=== PATIENT | female | born 1995 | race Caucasian/White ===

== ENCOUNTER → 2018-07-24 | Outpatient (CLI) | payer OTHER ==
[2018-07-24 17:58] LABS: BASO % 0.5 % (0.0-1.0); EOS % 0.6 % (0.0-3.0); HEMATOCRIT 42.6 % (36.0-47.0); HEMOGLOBIN 14.2 g/dl (12.0-15.5); IMMATURE GRANULOCYTE % 0.2 % (0-3.0); LYMPH # 1.4 10^3/uL (1.5-6.5); LYMPH % 21.2 % (24.0-44.0); MEAN CORPUSCULAR HEMOGLOBIN 30.2 pg (27.0-33.0); MEAN CORPUSCULAR HGB CONC 33.3 g/dl (32.0-36.5); MEAN CORPUSCULAR VOLUME 90.6 fl (80.0-96.0); MONO # 0.5 10^3/uL (0.0-0.8); MONO % 7.2 % (0.0-5.0); NEUTROPHILS # 4.6 10^3/uL (1.8-7.7); NEUTROPHILS % 70.3 % (36.0-66.0); PLATELET COUNT, AUTOMATED 224 10^3/uL (150-450); RED CELL DISTRIBUTION WIDTH 11.9 % (11.5-14.5); WHITE BLOOD COUNT 6.6 10^3/uL (4.0-10.0)
[2018-07-24 19:35] LABS: CHLAMYDIA DNA AMPLIFICATION NEGATIVE (NEGATIVE); GC DNA AMPLIFICATION NEGATIVE (NEGATIVE)
[2018-07-25 09:37] LABS: HBsAg Prenatal NEGATIVE (NEGATIVE); HIV 1&2 SCREEN CENTAUR NEGATIVE (NEGATIVE); RUBELLA IgG QUALITATIVE IMMUNE (IMMUNE)
[2018-07-25 09:37] LABS: HEPATITIS C VIRUS ABY INDEX 0.1 INDEX (<0.8)
== END ==
LOC: M SMT 11:22
DX: Z34.82 Encounter for supervision of other normal pregnancy, second trimester (principal); Z36.89 Encounter for other specified antenatal screening
CPT/HCPCS: 86762

== ENCOUNTER → 2018-09-03 | Outpatient (CLI) | payer OTHER ==
--- NOTE | 2018-09-03 19:57 | REP ---
Clinical: Anatomical evaluation. Comparison: 90th . Findings: Examination demonstrates a single live intrauterine in footling breech presentation. motion is identified by technologist. Placenta is noted posterior and grade the grade one without evidence for placenta previa or abruption. Amniotic fluid volume is normal. Cervix measures 4.1 cm in length and appears closed. No evidence for nuchal cord. Gestational age by current measurements 18 weeks 4-day with NAMAN 01/31/2019 . FHR equals 150 beats per minute. BPD 4.2 cm 18 weeks 4 days HC 15.8 cm 18 weeks 5 days AC 13.5 cm 19 weeks 0 days FL 2.9 cm 18 weeks 5 days HL 2.8 cm 19 weeks 0 days HC/AC ratio 1.17 Estimated weight 260 grams ( 55th percentile). Anatomical assessment demonstrates normal structures including cranium, choroid plexus, cavum, cerebellum/posterior fossa, facial features, lungs, diaphragm, stomach, cord insertion/three-vessel cord, kidneys/bladder, spine, and extremities. Impression: 1. Single live intrauterine in breech presentation demonstrating appropriate estimated weight to age. 2. Limited evaluation of the heart/ventricular outflow tracts noted. Remainder of the anatomical assessment is complete and normal. Electronically Signed by Duke Lara MD 09/03/2018 07:48 P
== END ==
LOC: M SMT 08:45
PROVIDERS: ATTEND Advanced Practice Midwife
DX: Z36.9 Encounter for antenatal screening, unspecified (principal); Z3A.18 18 weeks gestation of pregnancy

== ENCOUNTER → 2018-09-18 | Outpatient (CLI) | payer OTHER | LOC: M SMT 10:19 | PROVIDERS: ATTEND Obstetrics & Gynecology | DX: Z13.79 Encounter for other screening for genetic and chromosomal anomalies (principal) ==

== ENCOUNTER → 2018-09-24 | Outpatient (CLI) | payer OTHER ==
--- NOTE | 2018-09-24 15:13 | REP ---
OB ULTRASOUND: Real-time sonographic evaluation of the gravid uterus is performed. There is a single living intrauterine gestation. The estimated gestational age is 21 weeks 4 days, EDC 01/31/2019. Today's measurements indicate appropriate growth. BPD 52 mm = 21 weeks 5 days, 53rd percentile. HC 195 mm = 21 weeks 5 days, 54th percentile. AC 166 mm = 21 weeks 4 day, at the 51st percentile. Femur length 37 mm = 21 weeks 6 days, 56th percentile. HC/AC ratio 1.18 within normal range. Estimated weight 447 gram, 50th percentile. Cervix is closed measures 4 cm in length. heart rate 150 beats per minute. SEEN/GROSSLY UNREMARKABLE Lateral ventricles Yes Posterior fossa Yes Upper lip Yes Four-chamber heart Yes, echogenic focus in the left ventricle likely related to chordae tendineae. LVOT Yes RVOT Yes Stomach Yes Cord insertion Yes Three vessel cord Yes Kidneys Yes Bladder Yes Spine Yes position: Breech. Placenta: Posterior and grade 1 with no previa or abruption. Amniotic fluid: Within normal limits. Electronically Signed by Andres Thomas MD 09/24/2018 11:49 P
== END ==
LOC: M SMT 10:38
PROVIDERS: ATTEND Advanced Practice Midwife
DX: Z36.89 Encounter for other specified antenatal screening (principal); Z3A.21 21 weeks gestation of pregnancy

== ENCOUNTER → 2018-11-07 | Outpatient (CLI) | payer OTHER ==
[2018-11-07 17:47] LABS: HEMATOCRIT 39.2 % (36.0-47.0); HEMOGLOBIN 12.8 g/dl (12.0-15.5); MEAN CORPUSCULAR HEMOGLOBIN 30.7 pg (27.0-33.0); MEAN CORPUSCULAR HGB CONC 32.7 g/dl (32.0-36.5); PLATELET COUNT, AUTOMATED 211 10^3/uL (150-450); RED BLOOD COUNT 4.17 10^6/uL (4.00-5.40); WHITE BLOOD COUNT 8.3 10^3/uL (4.0-10.0)
== END ==
LOC: M SMT 10:12
PROVIDERS: ATTEND Advanced Practice Midwife
DX: O26.892 Other specified pregnancy related conditions, second trimester (principal)

== ENCOUNTER → 2019-01-14 | Outpatient (REF) | payer OTHER | LOC: M LAB REF 17:03 | PROVIDERS: ATTEND Obstetrics & Gynecology | DX: Z34.03 Encounter for supervision of normal first pregnancy, third trimester (principal) ==

== ENCOUNTER 2019-01-25 09:55 | Inpatient (IN) | payer OTHER ==
[~2019-01-25] VITALS: Ht 172.7 cm; Wt 123.6 kg
[2019-01-25] VITALS (56 sets, daily range): BP systolic 116–191; BP diastolic 59–93
[2019-01-25 10:54] LABS: HEMATOCRIT 40.3 % (36.0-47.0); HEMOGLOBIN 13.5 g/dl (12.0-15.5); MEAN CORPUSCULAR HEMOGLOBIN 30.8 pg (27.0-33.0); MEAN CORPUSCULAR HGB CONC 33.5 g/dl (32.0-36.5); MEAN CORPUSCULAR VOLUME 91.8 fl (80.0-96.0); PLATELET COUNT, AUTOMATED 213 10^3/uL (150-450); RED BLOOD COUNT 4.39 10^6/uL (4.00-5.40)
[2019-01-25] MEDS ORDERED: PRENTAB9 PO (10:54)
[2019-01-25] MEDS ORDERED: TUMS500C PO (10:54)
[2019-01-25 11:06] LABS: ALT/SGPT 16 U/L (12-78); BILIRUBIN,TOTAL 0.4 MG/DL (0.2-1.0); CREATININE FOR GFR 0.58 MG/DL (0.55-1.30); GLOMERULAR FILTRATION RATE > 60.0 (>60); LDH LACTATE DEHYDROGENASE 189 U/L (84-246); URIC ACID 4.1 MG/DL (2.6-6.0)
[2019-01-25] MEDS ORDERED: LACTATED RINGER'S 1000 ML IV STA (11:24)
[2019-01-25] MEDS ORDERED: FENTANYL 2MCG/ML ROPIVACAINE 0.2% IN 0.9% NACL 100ML IVBAG As Ordered ONE (11:24)
--- NOTE | 2019-01-25 11:40 | HPEPDOC ---
Obstetrical History & Physical General Date of Admission Jan 25, 2019 at 09:55 History of Present Illness Chief Complaint: Contractions, term Information Provided By: Patient Age: 23 : 1 Term: 0 Pre-term: 0 Abortions: 0 Livin Care Care: Good Care Dating Final EDC: Feb 02, 2019 Final EDC by: 1st trimester (US) EGA at Admission: 39 (+6) Antepartum Course Height (inches): 68 Pre- weight (lbs.): 218 Admission Weight (lbs.): 275 Past Medical History Past Obstetrical History : Past Obstetrical History: Primgravida [employer]RATOR History: No pertinent history Past Medical History Medical History noncontributory Surgical History: Other (bone spur right heel) Family History Significant Family History: Hypertension, Other (thyroid) Social History Marital Status: Family situation: Spouse/partner deployed (family present for support) Psychosocial History: No pertinent psych hx * Smoker: non-smoker Alcohol: Denies Drugs: denies Abuse Violence Screening Have you been hit/kicked/slapp: No Have you been sexually assault: No Allergies Coded Allergies: latex (Verified Adverse Reaction, Mild, ITCHING IRRITATION, 01/25/19) Medications Scheduled Calcium Carbonate (Tums) 200 Mg Tab.chew, 2 TAB PO QID for cough and congestion No.137/Iron/Folic Acd ( Vitamin Tablet) 1 Each Tablet, 1 TAB PO DAILY Physical Examination Physical Examination GENERAL: Alert and oriented times three. BREAST: . ABDOMEN: Gravid and non-tender to touch. FETUS: Is vertex (VTX) by sterile vaginal examination (SVE), fetus is vertex (VTX) by Kofi. HEART RATE: Regular rate and rhythm. LUNGS: Clear to auscultation (CTA). EXTREMITIES: No edema. No clonus. Deep tendon reflexes (DTRs) + 2. Laboratory Data 24H LABS Laboratory Tests 2 01/25/19 10:08: Serology Scanned Report Hepatitis B Testing 01/25/19 10:35: Nucleated Red Blood Cells % (auto) 0.0, Glomerular Filtration Rate > 60.0, Creatinine 0.58, Aspartate Amino Transf (AST/SGOT) 16, Alanine Aminotransferase (ALT/SGPT) 16, Lactate Dehydrogenase 189, Total Bilirubin 0.4, Uric Acid 4.1 CBC/BMP Laboratory Tests 6/14/19 10:35 Red Blood Count 4.39, Mean Corpuscular Volume 91.8, Mean Corpuscular Hemoglobin 30.8, Mean Corpuscular Hemoglobin Concent 33.5, Red Cell Distribution Width 13.3, Aspartate Amino Transf (AST/SGOT) 16, Alanine Aminotransferase (ALT/SGPT) 16, Lactate Dehydrogenase 189, Total Bilirubin 0.4, Uric Acid 4.1 Pertinent Laboratoy Data Blood Type: O+ RBC Antibody Screen: Negative HIV: Negative Hepatitis B: Negative Hepatitis C: Negative Rapid Plasma Reagin: Nonreactive Rubella: Immune Chlamydia/Gonorrhea: Negative Group B Streptococcus: Negative Quad Screen Test: Negative Glucose Tolerance Test: 99 Anatomy Ultrasound Ultrasound Date: Sep 03, 2018 Placenta Location: Posterior Normal Anatomy: Yes Placenta Previa: No Estimated Weight (grams): 260 (55%) Other Ultrasounds 07/24/18 dating 12w3d NAMAN 02/02/19 09/24/18 f/u anatomy 447gm 50%, normal anatomy Steroid Therapy Steroid Therapy: No Vaginal Examination Dilation: 4 cm (-5) Effacement: 80% Station: -2 Cervical Consistency: Soft Cervical Position: Posterior (very tense with exam) Presentation: Cephalic presentation Assessment Heart Rate (FHR): 145 Variability: Moderate Accelerations: Positive Decelerations: None Tocometer Contractions: Yes Frequency: every 2-5 min. Duration: less than 60 seconds Strength: palpated as moderate Assessment/Plan Assessment Pippa is a 23-year-old (G)1 para (P)0-0-0-0 at 38+6 weeks by 12-week ultrasound. Presents to Labor and Delivery (L&D) with reports of UC all day yesterday, becoming consistent and closer around 0500. Denies LOF or bleeding. Fetus is active. Blood pressure in office today 130/98. Rating her contraction pain at 9.5/10 Plan Admit and orient. Lead C Developer and consent. Diet: clear liquids. Group B Streptococcus (GBS) negative Labs and intravenous (IV) per unit protocol. Counseled on Pitocin and induction of labor (IOL). Lactated Ringers (LR): Bolus 500 mL, then at 125 mL/hr. Plans epidural for labor coping Anticipate normal spontaneous delivery (). C-S as appropriate. Samreen Lundberg CNM Jan 25, 2019 11:40
[2019-01-25] MEDS: LR 1,000 ML IV SCH ×2 (12:44→18:28)
[2019-01-25] MEDS ORDERED: LR 1,000 ML IV SCH (12:48)
--- NOTE | 2019-01-25 12:48 | IPNPDOC ---
Text Note Date of Service The patient was seen on 01/25/19. NOTE Comfortable with epidural Additional elevated BP's 140's-150's/80-90's UC 2-4 minutes x 45-60 seconds, moderate FH 145, Cat I Cervix unchanged, posterior Start pitocin augmentation per consult Dr Craft VS,Yuridia, I+O VS, Yuridia I+O Laboratory Tests 01/25/19 10:35 Red Blood Count 4.39, Mean Corpuscular Volume 91.8, Mean Corpuscular Hemoglobin 30.8, Mean Corpuscular Hemoglobin Concent 33.5, Red Cell Distribution Width 13. 3, Aspartate Amino Transf (AST/SGOT) 16, Alanine Aminotransferase (ALT/SGPT) 16, Lactate Dehydrogenase 189, Total Bilirubin 0.4, Uric Acid 4.1 Samreen Lundberg CNM Jan 25, 2019 12:48
[2019-01-25] MEDS ORDERED: OXYTOCIN DRIP 30 UNITS in APPROPRIATE DILUENT 1 EA IV SCH (13:00)
[2019-01-25] MEDS ORDERED: diphenhydrAMINE INJ 50MG/ML VIAL (J1200) IV PRN (13:15)
[2019-01-25] MEDS ORDERED: EPIDURAL COMMENT XX SCH (13:15)
[2019-01-25] MEDS ORDERED: ePHEDrine SULFATE 25 MG/5 ML(5MG/ML) SYRINGE IV PRN (13:15)
[2019-01-25] MEDS ORDERED: EPIDURAL/PCA KEYS XX PRN (13:15)
[2019-01-25] MEDS ORDERED: NALOXONE INJ 0.4 MG/1 ML VIAL (J2310) IV PRN (13:15)
[2019-01-25] MEDS ORDERED: ONDANSETRON 4MG/2ML VIAL (J2405) IV PRN (13:15)
[2019-01-25] MEDS ORDERED: LACTATED RINGER'S 1000 ML IV PRN (13:15)
[2019-01-25] MEDS: FENTANYL/ROPIVACAINE/NACL BAG 100 ML EPIDURAL SCH ×2 (13:15→19:47)
[2019-01-25] MEDS ORDERED: REFRIGERATOR IV KEYS XX PRN (13:15)
--- NOTE | 2019-01-25 16:40 | IPNPDOC ---
Text Note Date of Service The patient was seen on 01/25/19. NOTE Pitocin @ 6mu UC have been difficult to trace due to habitus and position, UC 3-5 minutes apart. Cat I tracing SVE /-2 AROM clear fluid 1631 IUPC and FSE placed. Will update physician CHERRI,Yuridia, I+O VS, Yuridia, I+O Laboratory Tests 01/25/19 10:35 Red Blood Count 4.39, Mean Corpuscular Volume 91.8, Mean Corpuscular Hemoglobin 30.8, Mean Corpuscular Hemoglobin Concent 33.5, Red Cell Distribution Width 13.3, Aspartate Amino Transf (AST/SGOT) 16, Alanine Aminotransferase (ALT/SGPT) 16, Lactate Dehydrogenase 189, Total Bilirubin 0.4, Uric Acid 4.1 Samreen Lundberg CNM Jan 25, 2019 16:40
--- NOTE | 2019-01-25 20:07 | IPNPDOC ---
Text Note Date of Service The patient was seen on 01/25/19. NOTE UC 2-4 minutes x 60 seconds FH 130, variable decels to 90's with recovery. Baseline variability maintained, Cat II SVE 8/100/-2, large amount of bloody show Pitocin off. Dr Craft updated on pt status. VS,Fishbone, I+O VS, Fishbone, I+O Laboratory Tests 01/25/19 10:35 Red Blood Count 4.39, Mean Corpuscular Volume 91.8, Mean Corpuscular Hemoglobin 30.8, Mean Corpuscular Hemoglobin Concent 33.5, Red Cell Distribution Width 13. 3, Aspartate Amino Transf (AST/SGOT) 16, Alanine Aminotransferase (ALT/SGPT) 16, Lactate Dehydrogenase 189, Total Bilirubin 0.4, Uric Acid 4.1 Vital Signs Date Time Temp Pulse Resp B/P (MAP) Pulse Ox O2 Delivery O2 Flow Rate FiO2 01/25/19 19:23 86 139/81 (100) Samreen Lundberg CNM Jan 25, 2019 20:07
--- NOTE | 2019-01-25 23:46 | IPNPDOC ---
Text Note Date of Service The patient was seen on 01/25/19. NOTE Pushing x 1 hour. Multiple deep variable decels with pushing. Baseline 150, m inimal/moderate variability Caput visible with pushing efforts Dr Craft requested to attend delivery VS,Fishbone, I+O VS, Fishbone, I+O Laboratory Tests 01/25/19 10:35 Red Blood Count 4.39, Mean Corpuscular Volume 91.8, Mean Corpuscular Hemoglobin 30.8, Mean Corpuscular Hemoglobin Concent 33.5, Red Cell Distribution Width 13.3, Aspartate Amino Transf (AST/SGOT) 16, Alanine Aminotransferase (ALT/SGPT) 16, Lactate Dehydrogenase 189, Total Bilirubin 0.4, Uric Acid 4.1 Vital Signs Date Time Temp Pulse Resp B/P (MAP) Pulse Ox O2 Delivery O2 Flow Rate FiO2 01/25/19 19:23 86 139/81 (100) Samreen Lundberg CNM Jan 25, 2019 23:46
[2019-01-26] VITALS (7 sets, daily range): BP systolic 113–153; BP diastolic 57–80
--- NOTE | 2019-01-26 00:43 | DNPDOC ---
[facility] Delivery Note Delivery Note DATE OF DELIVERY: January 26, 2019 PREDELIVERY DIAGNOSIS: 39+0/7 weeks' gestation and labor. POST DELIVERY DIAGNOSIS: Delivered. PROCEDURE: Spontaneous vaginal delivery. PROVIDER: Samreen Lundberg CNM ANESTHESIA: Epidural. ESTIMATED BLOOD LOSS: 200 mL. FINDINGS: 7 pound 6 ounce, 3350gm male infant, Score 8/9, Compound L anterior arm and tight nuchal cord times 1. DELIVERY SUMMARY: Patient is a 23-year-old 1 now para 1-0-0-1 who was admitted to labor and delivery for labor and borderline hypertension. She received pitocin augmentation of labor and utilized an epidural for labor coping. AROM clear fluid 1631, FSE and IUPC were placed. FD 2119. Dr Craft in building during delivery due to recurrent deep variable decels. Viable male delivered DANIA, compound with L anterior arm through tight nuchal cord @ 0011. Spontaneous respirations with stimulation, transitioned on maternal abdomen. Cord gases obtained and pending. Cord doubly clamped and cut by grandmother under my direction once pulsations ceased. Apgars 8/9. Placenta horta, intact with 3 v cord @ 0017. Fundus firmed with massage and IV pitocin bolus. EBL 200ml. Small posterior outlet abrasion repaired with one suture of 3-0 vicryl rapide. Infant wt 7#6, 3350 gm. Sponge, sharp and instrument count correct. Samreen Lundberg CNM Jan 26, 2019 00:43
[2019-01-26] MEDS ORDERED: ANUSOL HC CREAM 30GM TOP PRN (00:45)
[2019-01-26] MEDS ORDERED: RHOGAM 300 MCG (1500 IU) INJ (J2790) IM SCH (00:45)
[2019-01-26] MEDS ORDERED: DOCUSATE SODIUM 100 MG CAP PO PRN (00:45)
[2019-01-26] MEDS ORDERED: IBUPROFEN 800 MG TAB PO PRN (00:45)
[2019-01-26] MEDS ORDERED: IBUPROFEN 600 MG TAB PO PRN (00:45)
[2019-01-26] MEDS ORDERED: METHYLERGONOVINE MALEATE 0.2 MG TAB PO PRN (00:45)
[2019-01-26] MEDS ORDERED: MOM 30ML SUSPENSION UDC PO PRN (00:45)
[2019-01-26] MEDS ORDERED: ACETAMINOPHEN TAB 650MG DOSE (2X325MG) PO PRN (00:45)
[2019-01-26] MEDS ORDERED: ACETAMINOPHEN 500 MG TAB PO PRN (00:45)
[2019-01-26] MEDS ORDERED: DIBUCAINE 1% OINTMENT 30GM TOP PRN (00:45)
[2019-01-26] MEDS ORDERED: MEASLES,MUMPS,RUBELLA VACCINE INJ (MMR-II) (90707) SC SCH (00:45)
[2019-01-26 01:08] LABS: CORD GAS HCO3 A 19.8 MEQ/L; CORD GAS PCO2 A 40.5 mmHg; CORD GAS PH A 7.308 UNITS; CORD GAS PO2 A 43.6 mmHg; CORD GAS SBC A 19.3 MEQ/L; CORD GAS TCO2 A 21.1 MEQ/L
[2019-01-26 01:09] LABS: CORD GAS ABE V -4.8; CORD GAS HCO3 V 20.9 MEQ/L; CORD GAS O2 SAT V 81.1 %; CORD GAS PH V 7.326 UNITS; CORD GAS PO2 V 39.5 mmHg; CORD GAS SBC V 20.2 MEQ/L; CORD GAS TCO2 V 22.2 MEQ/L
[2019-01-26] MEDS: PRENATAL VITAMINS CHEWABLE TABLET PO SCH (08:26)
[2019-01-26] MEDS ORDERED: PRENATAL VITAMINS CHEWABLE TABLET PO SCH (09:00)
[2019-01-27 06:00] VITALS: BP 119/75
[2019-01-27] MEDS: PRENATAL VITAMINS CHEWABLE TABLET PO SCH (08:09)
[2019-01-27] MEDS ORDERED: IBUP80TA PO (13:43)
[2019-01-27] MEDS ORDERED: ACET-683 PO (13:43)
== END 2019-01-27 15:50 | disposition home or self-care (01) | DRG 807 ==
LOC: M LDI 09:55 → M OBS 01-26 02:40
PROVIDERS: ADMIT Advanced Practice Midwife; ATTEND Advanced Practice Midwife
PROC: 10E0XZZ Delivery of Products of Conception, External Approach (ICD-10-PCS; principal; 2019-01-26)
PROC: 10907ZC Drainage of Amniotic Fluid, Therapeutic from Products of Conception, Via Natural or Artificial Opening (ICD-10-PCS; 2019-01-26)
DX: O32.6XX0 Maternal care for compound presentation, not applicable or unspecified (principal); Z37.0 Single live birth; O69.89X0 Labor and delivery complicated by other cord complications, not applicable or unspecified; Z3A.38 38 weeks gestation of pregnancy; Z91.040 Latex allergy status

== ENCOUNTER → 2019-06-11 | Outpatient (REF) | payer OTHER ==
[~2019-06-11] MED LIST: ACET-683 PO; IBUP80TA PO; PRENTAB9 PO; TUMS500C PO
[2019-06-11 19:54] LABS: CHLAMYDIA DNA AMPLIFICATION NEGATIVE (NEGATIVE); GC DNA AMPLIFICATION NEGATIVE (NEGATIVE)
== END ==
LOC: M LAB REF 17:16
PROVIDERS: ATTEND Advanced Practice Midwife
DX: Z12.4 Encounter for screening for malignant neoplasm of cervix (principal); Z11.3 Encounter for screening for infections with a predominantly sexual mode of transmission; C30.0 Malignant neoplasm of nasal cavity; B37.3 Candidiasis of vulva and vagina
CPT/HCPCS: 87086; 87491; 87591; G0123

== ENCOUNTER → 2019-12-24 | Outpatient (REF) | payer OTHER ==
[2019-12-24 13:08] LABS: FREE T4 0.88 NG/DL (0.76-1.46); THYROID STIMULATING HORMONE 1.5 uIU/ML (0.358-3.740)
== END ==
LOC: M PLALAB 10:17
PROVIDERS: ATTEND Advanced Practice Midwife
DX: F53.0 Postpartum depression (principal)
CPT/HCPCS: 36415; 82652; 84439; 84443; G0463

== ENCOUNTER → 2020-09-17 | Outpatient (REF) | payer OTHER | LOC: M SFHCWAGY 10:04 | PROVIDERS: ATTEND Advanced Practice Midwife | DX: Z12.4 Encounter for screening for malignant neoplasm of cervix (principal) ==

== ENCOUNTER → 2021-06-29 | Outpatient (CLI) | payer OTHER | LOC: M PLALAB 12:10 | PROVIDERS: ATTEND Advanced Practice Midwife | DX: O99.211 Obesity complicating pregnancy, first trimester (principal); E66.9 Obesity, unspecified; Z3A.00 Weeks of gestation of pregnancy not specified ==

== ENCOUNTER → 2021-07-01 | Outpatient (CLI) | payer OTHER | LOC: M PLALAB 10:02 | PROVIDERS: ATTEND Advanced Practice Midwife | DX: O99.211 Obesity complicating pregnancy, first trimester (principal); Z3A.00 Weeks of gestation of pregnancy not specified; E66.9 Obesity, unspecified ==

== ENCOUNTER → 2021-07-07 | Outpatient (CLI) | payer OTHER | LOC: M PLALAB 08:38 | PROVIDERS: ATTEND Advanced Practice Midwife | DX: O02.1 Missed abortion (principal) ==